=== PATIENT | female | born 2000 | race Caucasian/White ===

== ENCOUNTER 2020-04-22 20:41 | Emergency (ER) | payer SELFPAY ==
[~2020-04-22] VITALS: Ht 162.6 cm; Wt 88.6 kg
[2020-04-22 21:09] VITALS: BP 125/78
--- NOTE | 2020-04-22 21:28 | NUR ---
PT AMBULATES FROM TRIAGE TO ROOM WITH STEADY GAIT.
[2020-04-22] MEDS ORDERED: DEXAMETHASONE 4 MG TABLET ONE (21:57)
[2020-04-22] MEDS ORDERED: IBUPROFEN 600 MG TABLET ONE (21:57)
[2020-04-22] MEDS ORDERED: DEXAMETHASONE 4 MG TABLET PO ONE (22:00)
[2020-04-22] MEDS ORDERED: PLEASE ENTER ALLERGIES MC SCH (22:00)
[2020-04-22] MEDS ORDERED: IBUPROFEN 200 MG TABLET PO ONE (22:00)
== END 2020-04-22 22:46 | disposition home or self-care (01) ==
LOC: ED 21:39
DX: J02.9 Acute pharyngitis, unspecified (principal)
CPT/HCPCS: 87081; 87880; 99283